=== PATIENT | female | born 1950 | race Two or more races ===

== ENCOUNTER 2016-09-02 16:02 | Outpatient (CLI) | payer MEDICARE ==
--- NOTE | 2016-09-02 16:49 | Diagnostic Imaging Report ---
Indications: COUGH Technique: AP and lateral chest Findings: Comparison: None Marked elevation apparent right hemidiaphragm. Linear density overlying right lung base. Left lung relatively normally inflated and clear. Cardiac silhouette upper limits of normal size. Pulmonary vasculature within normal limits. No pleural abnormalities. Aortic arch mildly calcified. Left chest wall pacemaker. Left arm versus axillary surgical clips. 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
== END 2016-09-02 18:00 | disposition home or self-care (01) ==
LOC: RAD 16:02
DX: R05 Cough (principal); I70.0 Atherosclerosis of aorta; Z95.0 Presence of cardiac pacemaker
CPT/HCPCS: 71020